=== PATIENT | male | born 1980 | race Caucasian/White ===

== ENCOUNTER 2022-12-31 08:25 | Outpatient (CLI) | payer OTHER, SELFPAY ==
--- NOTE | 2023-01-26 17:39 | WPDSLEEPSTUD ---
Sleep Study Date of Study: 12/31/22 Ordering Provider: Kevin Mera Interpreting Physician: Quin Mueller MD Sleep Study Type: Polysomnogram Height: 1.83 m Weight: 87.997 kg Body Mass Index: 26.3 Neck Circumference (inches): 16 [place]: 13 Reason for Sleep Study Hypersomnolence Sleep History Randy Sim is a 42-year-old man with restless non-restorative sleep. He awakens feeling tired. He has insomnia. Most nights, he snores. He occasionally awakens from sleep feeling short of breath. He rarely awakens at night with heartburn, belching or coughing. He occasionally snores and occasionally has loud enough that others complain about it. He constantly has trouble sleeping with a cold. He occasionally wakes up gasping for breath at night. He occasionally has breathing problems at night observed by others. He constantly sweats excessively at night. He rarely notices his heart pounding or beating irregularly at night. He occasionally falls asleep during the day, rarely falls asleep involuntarily, never falls asleep while driving. he does not have loss of muscle tone with strong emotion. He occasionally has daytime difficulties due to excessive sleepiness. He rarely feels paralyzed on waking or falling asleep. He occasionally has vivid dreamlike scenes on waking or falling asleep. He does not feel afraid to go to sleep. He occasionally has nightmares. He occasionally remembers his dreams. He frequently has racing thoughts. He occasionally feels sad or depressed. He frequently has anxiety. He frequently has muscular tension. He frequently notices parts of his body jerking. He frequently kicks at night. He rarely has crawling and aching feelings in his legs. He rarely has any kind of leg pain at night. He occasionally has morning jaw pain. He occasionally is bothered by pain during the day. He rarely is awakened by pain at night. He frequently wakes up feeling stiff the morning with sore achy muscles and pain in the neck and spine. He has headaches, fatigue, sexual problems, insomnia, and he takes antacids regularly. Normal bedtime is 10:00 p.m. falling asleep within 1 hour, typically waking 2-3 times at night for few minutes, tossing and turning and returns to sleep for the rest of the night. His normal wake up time is 5:00 a.m.. On weekends, bedtime is 1 hour later, 11:00 p.m. and he wakes up 1 hour later, 6:00 a.m.. He sometimes takes naps. A short nap lasting 10 or 15 minutes is not refreshing. He is drowsy for 1 or 2 hours after waking. He feels better in the evening compared other times a day. Habits: Never smoked tobacco. Caffeine 1 serving a day. Alcohol, on weekends, couple of beverages. No recreational substances. FORMERLY [facility], [facility] Past Medical History Medical History (Updated 01/26/23 @ 19:55 by Quin Mueller MD) Joint pain Seasonal allergies Surgical History Surgical History (Updated 01/26/23 @ 17:55 by Quin Mueller MD) History of sinus surgery Medications Medications: Motrin 800 mg 1-2 times a week Zyrtec 10 mg daily during allergy season Sleep Procedure This test was performed using the [employer] multiple channel system including EOG, EEG, submental EMG, EKG, nasal and oral airflow using thermistors and nasal pressure sensors, chest and abdominal belts for body position data, and pulse oximetry. Video monitoring was also performed. The study was scored using CMS guidelines. Sleep Architecture The recording time was 481.6 minutes. The total sleep time was 379 minutes. The sleep efficiency is 78.7%. Sleep latency is 78.7%. REM latency is 131 minutes. He had 50.5 minutes of wake after sleep onset. Sleep architecture shows 10.8% stage I sleep, 61.5% stage II sleep, 13.2% stage III sleep, and 14.5% stage REM. Respiratory Analysis The apnea-hypopnea index is 2.8. In supine REM, there were 2 hypopneas, AHI was 10.4. In supine nonREM, there was 1 central apnea, AHI is 1.5. I
[2023-01-26 19:59] VITALS: BMI 26.3
== END 2023-01-01 05:38 | disposition home or self-care (01) ==
LOC: ANHCSM 08:27
DX: R40.0 Somnolence (principal); G47.09 Other insomnia; R53.83 Other fatigue; G47.00 Insomnia, unspecified
CPT/HCPCS: 95810